=== PATIENT | female | born 1980 | race Caucasian/White ===

== ENCOUNTER → 2024-04-26 | Outpatient (CLI) | payer BC, SELFPAY ==
--- NOTE | 2024-04-26 09:30 | XR_ITS ---
Examination: Diagnostic digital mammography, unilateral, right Computer aided detection 3-D breast Tomosynthesis, unilateral Date and time of exam: April 26, 2024 0956 hours INDICATIONS: Mammogram November 25, 2023 3 cm focal asymmetry inner right breast Technique: Nonmagnified MLO, CC views of the right breast have been obtained, reconstructed from 3-D Tomosynthesis images. R2 computer aided detection program utilized for evaluation of suspicious masses and/or abnormal calcifications. 3-D Tomosynthesis images obtained. Findings: The breast is heterogeneously dense, which may obscure small masses Focal asymmetry remains inner right breast Impression: BI-RADS category 0: Incomplete: Need additional imaging evaluation Repeat right breast sonography follow-up is needed
== END | disposition home or self-care (01) ==
PROVIDERS: Referring Provider Family Medicine; Visit Provider Family Medicine
DX: R92.8 Other abnormal and inconclusive findings on diagnostic imaging of breast (principal)
CPT/HCPCS: 77061; 77065; G0279

== ENCOUNTER → 2024-05-09 | Outpatient (CLI) | payer BC, SELFPAY ==
--- NOTE | 2024-05-09 11:00 | XR_ITS ---
Examination: Breast ultrasound, unilateral, right complete Date and time of exam: May 09, 2024 1136 hours INDICATIONS: Mammogram April 26, 2024 focal asymmetry remains inner right breast, initially noted, 3 cm mammogram November 25, 2023 Technique: Real-time reilly scale ultrasonographic imaging performed right breast including all 4 quadrants as well as nipple retroareolar and axillary region. Findings: 10:00 cyst 6 x 3 x 6 mm 3.7 cm right axillary lymph node No suspicious masses noted Impression: BI-RADS Category 2: Benign findings
== END | disposition home or self-care (01) ==
LOC: CDIM 10:36
PROVIDERS: PCP Family Medicine; Referring Provider Family Medicine; Visit Provider Family Medicine
DX: N60.01 Solitary cyst of right breast (principal)
CPT/HCPCS: 76641

== ENCOUNTER 2024-07-27 06:09 | Emergency (ER) | payer BC, SELFPAY ==
[2024-07-27 06:37] VITALS: BP 119/82; PULSE 70; RESP 18; TEMP 36.9; O2SAT 96
--- NOTE | 2024-07-27 06:48 | XR_ITS ---
Examination: Ultrasound soft tissue neck TECHNIQUE: Grayscale sonographic images soft tissue neck Exam date and time: July 27, 2024 0824 hours INDICATIONS: Right-sided neck pain beginning 3 days ago FINDINGS: No cystic or solid mass depicted IMPRESSION: No cystic or solid mass depicted If right-sided neck pain persists, consider CT scan soft tissue neck post intravenous contrast follow-up
--- NOTE | 2024-07-27 06:48 | XR_ITS ---
Examination: Carotid arterial duplex scan, ultrasound. Date and time of exam: July 27, 2024 0801 hours INDICATIONS: Right-sided neck pain beginning 3 days ago Technique: Multiple sonographic images have been obtained of the carotid arteries and vertebral arteries, B-mode/grayscale imaging and Doppler spectral analysis and color flow Peak systolic and diastolic velocities have been recorded. Systolic diastolic ratios have been calculated. Findings: Right peak systolic velocities: Distal internal carotid artery peak systolic velocity is 0.6 M/sec Proximal internal carotid artery peak systolic velocity is 0.7 M/sec Carotid bifurcation peak systolic velocity is 0.9 M/sec External carotid artery peak systolic velocity is 0.9 M/sec Vertebral artery flow is antegrade. Left peak systolic velocities: Distal internal carotid artery peak systolic velocity is 0.6 M/sec Proximal internal carotid artery peak systolic velocity is 0.6 M/sec Carotid bifurcation peak systolic velocity is 0.8 M/sec External carotid artery peak systolic velocity is 1.1 M/sec Vertebral artery flow is antegrade Doppler waveform analysis demonstrates no spectral broadening Impression: Right internal carotid artery demonstrates 0-10% stenosis. Left internal carotid artery demonstrates 0-10% stenosis.
--- NOTE | 2024-07-27 07:09 | PD.EDNECK ---
ED Neck Injury Pain RME/HPI General Chief Complaint: Neck Pain/Injury Stated Complaint: Right side of neck pain, fatigue x3 days Time Seen by Provider: 07/27/24 06:31 Source: patient Arrival date/time: 07/27/24 06:09 This is a 43-year-old female presents to the emergency department with complaints of right sided neck pain for 3 days. Reports pain 8 out of 10. Has been taking [id number] Tylenol with no relief of symptoms. + Reports tenderness to palpation. No rashes to area denies any recent injury. No posterior neck pain. Has not had any fever chills or rigors. Mode of arrival: ambulatory Limitations: no limitations Related Data Home Medications ?Medication ?Instructions ?Recorded ?Confirmed paroxetine HCl 10 mg tablet (Paxil) 10 mg PO QDAY 03/05/19 04/30/19 Previous Rx's ?Medication ?Instructions ?Recorded acetaminophen 325 mg tablet 650 mg (2 x 325 mg) PO Q6H PRN 07/27/24 (Tylenol) fever or pain #30 tabs cyclobenzaprine 5 mg tablet 5 mg PO Q8H PRN muscle spasm #14 07/27/24 tabs Allergies Allergy/AdvReac Type Severity Reaction Status Date / Time adhesive tape Allergy Intermediate Rash Verified 04/30/19 08:06 morphine Allergy Hives Verified 01/03/24 06:11 Review of Systems Review of Systems Systems Reviewed: All systems reviewed, normal except as documented Narrative Review of Systems: Gen: No fever, no chills, no weight loss EYES: No discharge, no visual changes, no pain HEENT: No ear pain, no congestion, no sore throat, + right lateral neckpain PULM: No shortness of breath, no cough, no congestion CV: No chest pain, no dyspnea on exertion, no palpitations GI: No nausea, no vomiting, no diarrhea, no pain, no constipation : No frequency, no urgency, no dysuria Musc/skel: No joint pain, no back pain Skin: No rash Psyc: No hallucinations, no depression Heme/Lymph: No easy bleeding or bruising tendencies Neuro: No weakness, no headache ED Exam General Limitations: Present no limitations General appearance: Present alert and in no apparent distress Head Head exam: Present atraumatic Eye Eye exam: Present normal appearance, PERRL and EOMI ENT ENT exam: Present normal exam, normal oropharynx and mucous membranes moist Neck Neck exam: Present full ROM and trachea midline; Absent meningismus, lymphadenopathy or thyromegaly Expanded Neck Exam Neck exam focused ED: Present other (+ Right lateral tenderness to palpation near sternocleidomastoid muscle.); Absent midline tenderness, paraspinal tenderness, anterior neck swelling, thyroid enlargement or JVD Chest Chest inspection: Present normal inspection and symmetric chest wall rise Respiratory Respiratory exam: Present normal lung sounds bilaterally Cardiovascular Cardiovascular exam: Present regular rate, normal rhythm and normal heart sounds Abdominal Exam Abdominal exam: Present soft and normal bowel sounds Extremities Exam Extremities exam: Present normal inspection and full ROM Back Exam Back exam: Present normal inspection and full ROM Neurological Exam Neurological exam: Present alert, oriented X3 and CN II-XII intact Psychiatric Psychiatric exam: Present normal affect and normal mood Skin Skin exam: Present warm, dry, intact and normal color Course Quality Measures none Orders Category Date Time Status US carotid duplex Stat Exams 07/27/24 06:48 Completed US soft tissue head and neck Stat Exams 07/27/24 06:48 Completed Vital Signs Vital signs: Vital Signs Temperature 98.5 F 07/27/24 06:37 Pulse Rate 70 07/27/24 06:37 Respiratory Rate 18 07/27/24 06:37 Blood Pressure 119/82 07/27/24 06:37 Pulse Oximetry (%) 96 07/27/24 06:37 Oxygen Delivery Method Room Air 07/27/24 06:37 Neck Pain Patient data External records reviewed:: [facility] previous records Clinical information provided by:: patient Social determinants that could affect healthcare access:: none Patient has the following chronic illnesses:: none How is presenting disease/condition affected by chronic disease/condition?: no chronic disease Evaluation data The following diagnostics were reviewed and interpreted by me:: radiology exam(s) Lab and/or radiology exams considered but not ordered:: no Interpretation Summary: Examination: Ultrasound soft tissue neck TECHNIQUE: Grayscale sonographic images soft tissue neck Exam date and time: July 27, 2024 0824 hours INDICATIONS: Right-sided neck pain beginning 3 days ago FINDINGS: No cystic or solid mass depicted IMPRESSION: No cystic or solid mass depicted If right-sided neck pain persists, consider CT scan soft tissue neck post intravenous contrast follow-up Examination: Carotid arterial duplex scan, ultrasound. Date and time of exam: July 27, 2024 0801 hours INDICATIONS: Right-sided neck pain beginning 3 days ago Technique: Multiple sonographic images have been obtained of the carotid arteries and vertebral arteries, B-mode/grayscale imaging and Doppler spectral analysis and color flow Peak systolic and diastolic velocities have been recorded. Systolic diastolic ratios have been calculated. Findings: Right peak systolic velocities: Distal internal carotid artery peak systolic velocity is 0.6 M/sec Proximal internal carotid artery peak systolic velocity is 0.7 M/sec Carotid bifurcation peak systolic velocity is 0.9 M/sec External carotid artery peak systolic velocity is 0.9 M/sec Vertebral artery flow is antegrade. Left peak systolic velocities: Distal internal carotid artery peak systolic velocity is 0.6 M/sec Proximal internal carotid artery peak systolic velocity is 0.6 M/sec Carotid bifurcation peak systolic velocity is 0.8 M/sec External carotid artery peak systolic velocity is 1.1 M/sec Vertebral artery flow is antegrade Doppler waveform analysis demonstrates no spectral broadening Impression: Right internal carotid artery demonstrates 0-10% stenosis. Left internal carotid artery demonstrates 0-10% stenosis. Medications / Prescriptions Medications or Prescriptions considered but not ordered:: no Medication administrations:: no Consultations Consultation(s) initiated? (list below): No Diagnosis Neck Differential Diagnosis: disc disorder of cervical region, whiplash injury to neck, closed subluxation of cervical spine, cervical radiculopathy, torticollis, cervical spondylosis and strain of neck muscle Most likely diagnosis given after review of the tests above:: Most likely strain of neck muscle. Admission Indicated Admission indicated?: not indicated Admission Request Was there a request for admission?: No Disposition Plan Disposition Plan: Discharge Discharge Attestation Discharge Attestation: The patient and all family members were given an opportunity to ask questions and understood the discharge instructions. Discharge instructions specifically effects, indications for sooner follow up or return to the emergency department, and the expected course of current diagnosis. Patient condition: Stable Discharge Plan Plan Patient Disposition: HOME (Self Care) Patient condition on transfer: Stable Prescriptions/Referrals Prescriptions/Med Rec: New cyclobenzaprine 5 mg tablet 5 mg PO Q8H PRN (Reason: muscle spasm) Qty: 14 0RF acetaminophen [Tylenol] 325 mg tablet 650 mg PO Q6H PRN (Reason: fever or pain) Qty: 30 0RF No Action paroxetine HCl [Paxil] 10 mg tablet 10 mg PO QDAY Referrals: Sri Murphy MD [Primary Care Provider] - In 1 week Problem List Clinical Impression: Neck pain Patient/Caregiver Discharge Instructions Education Materials: ED Neck Pain Additional Instructions: It is very important that you follow-up with your primary doctor. Your ultrasounds were reassuring. I did send medication for inflammation and muscle relaxer that might help with your symptoms. Return to the emergency department there is any worsening symptoms change in condition. Print Language: Egyptian Stand Alone Forms: Nicki Award Info., Patient Portal Info Letter PA/[employer] SUPERVISOR Supervising Physician PA/[employer] SUPERVISOR Supervising Physician: Dr Washington
== END 2024-07-27 10:30 | disposition home or self-care (01) ==
PROVIDERS: Emergency Provider Emergency Medicine; PCP Family Medicine
DX: M54.2 Cervicalgia (principal)
CPT/HCPCS: 76536; 93880; 99284

== ENCOUNTER → 2024-11-23 | Outpatient (CLI) | payer BC, SELFPAY ==
--- NOTE | 2024-11-23 | XR_ITS ---
Examination: Bilateral hips, AP pelvis, 5 views Technique: AP, lateral views both hips, AP pelvis, 5 views Exam date and time: November 23, 2024 0743 hours Comparison March 28, 2012 INDICATIONS: Patient fell today with injury to the right hip, right hip pain FINDINGS: No hip fracture or dislocation Bones of the pelvis intact IMPRESSION: No hip or pelvic fracture
[2024-11-23 08:26] LABS: Collection Type, Urine Clean Catch
[2024-11-23 09:00] LABS: Basophils % (Auto) 1 % (0-2.5); Eosinophils # (Auto) 0.1 Thou/mm3 (0.0-0.5); Eosinophils % (Auto) 1 % (0-10); Hematocrit 44.4 % (36.0-46.0); Hemoglobin 14.5 g/dL (12.0-16.0); Immature Granulocytes % (Auto) 1 % (0-0); Immature Granulocytes Auto 0.05 Thou/mm3 (0.00-0.00); Lymphocytes # (Auto) 1.8 Thou/mm3 (1.0-4.8); Lymphocytes % (Auto) 21 % (10-50); Mean Corpuscular HGB Conc 32.7 g/dl (31.0-37.0); Mean Corpuscular Hemoglobin 29.6 pg (25.0-35.0); Mean Corpuscular Volume 91 fL (80-100); Monocytes # (Auto) 0.8 Thou/mm3 (0.0-0.8); Monocytes % (Auto) 9 % (0-12); Neutrophils # (Auto) 5.8 Thou/mm3 (1.8-7.7); Neutrophils % (Auto) 67 % (37-80); Nucleated Red Blood Cell % 0 /100 WBC (0); Platelet Count 477 Thou/mm3 (140-440); RDW Standard Deviation 45.6 fL (36.4-46.3); White Blood Count 8.6 Thou/mm3 (3.6-11.0)
[2024-11-23 09:02] LABS: Glucose Estimated Average 88 mg/dL (80-131); Hemoglobin A1C 4.7 % Hgb (4.8-6.0)
[2024-11-23 09:10] LABS: Bacteria,Urine Rare; Bilirubin,Urine Negative (Negative); Blood,Urine Negative (Negative); Calcium Oxalate Crystals,Urine 3+; Color,Urine Yellow (Lt Yel-Yel); Glucose, Urine Negative (Negative); Hyaline Casts,Urine < 1 /hpf (0-1); Ketones,Urine Negative (Negative); Leukocyte Esterase,Urine Positive (Negative); Nitrite,Urine Negative (Negative); PH,Urine 5.5 (5.0-7.0); Protein,Urine 1+ (Neg - Trace); RBC,Urine 11 /hpf (0-3); Specific Gravity,Urine 1.029 (1.001-1.035); Squamous Epithelial Cell,Urine 14 /hpf (0-5); Urobilinogen,Urine Negative mg/dL (0.0-1.0); WBC,Urine 11 /hpf (0-5)
[2024-11-23 09:12] LABS: Clarity,Urine Hazy (Clear/Hazy)
[2024-11-23 09:15] LABS: Alanine Aminotransferase 13 U/L (10-49); Albumin, Serum 4.4 gm/dL (3.5-5.0); Albumin/Globulin Ratio 1.9 (1.2-2.2); Alkaline Phosphatase 166 U/L (46-116); Anion Gap 9 (7-16); Aspartate Amino Transferase 18 U/L (0-34); BUN/Creatinine Ratio 16 Ratio (12-20); Bilirubin,Total 0.5 mg/dL (0.3-1.2); Blood Urea Nitrogen 16 mg/dL (9-23); Calcium 9.4 mg/dL (8.3-10.6); Calcium (Corrected) 9.4 mg/dL (8.5-10.1); Carbon Dioxide 24.8 mMol/L (20.0-31.0); Cardiac Risk Estimate 2.2 RATIO (3.7-5.6); Chloride 105 mMol/L (98-107); Cholesterol 153 mg/dL (132-200); Globulin 2.3 gm/dL (2.3-3.5); Glucose 86 mg/dL (74-106); HDL Cholesterol 70 mg/dL (40-60); LDL Cholesterol,Calculated 67 mg/dL (0-130); Osmolality,Calculated 277 (275-295); Potassium 3.9 mMol/L (3.4-5.1); Sodium 139 mMol/L (136-145); Total Protein 6.7 gm/dL (5.7-8.2); Triglycerides 80 mg/dL (30-150); eGFR > 60 See Note
== END | disposition home or self-care (01) ==
PROVIDERS: PCP Family Medicine; Referring Provider Family Medicine; Visit Provider Family Medicine
DX: E66.9 Obesity, unspecified (principal); M25.551 Pain in right hip; M25.552 Pain in left hip
CPT/HCPCS: 36415; 73523; 80053; 80061; 81001; 83036; 85025

== ENCOUNTER 2024-11-24 20:41 | Emergency (ER) | payer BC, SELFPAY ==
[2024-11-24 20:43] VITALS: BMI 33.6
--- NOTE | 2024-11-24 20:57 | XR_ITS ---
Examination: Knee, right , 3 views Technique: Knee AP, lateral, oblique 3 views Date and time of exam: November 24, 2024 2100 hours INDICATIONS: Patient fell yesterday with injury to the knee, knee pain FINDINGS: Moderate osteopenia No acute fracture Small knee effusion IMPRESSION: No acute fracture or dislocation
[2024-11-24 21:14] VITALS: BP 122/81; PULSE 74; RESP 18; TEMP 36.6; O2SAT 99
--- NOTE | 2024-11-24 21:29 | EDNOTE_ITS ---
Lower Extremity Injury RME/HPI General Chief Complaint: Extremity Injury, Lower Stated Complaint: FALL R KNEE PAIN AND SWELLING Time Seen by Provider: 11/24/24 21:15 Arrival date/time: 11/24/24 20:41 44F with no significant PMH presents to ED with R knee pain and swelling after trip and fall. Patient denies hitting head. Limitations: no limitations Related Data Home Medications ?Medication ?Instructions ?Recorded ?Confirmed paroxetine HCl 10 mg tablet (Paxil) 10 mg PO QDAY 02/0604/30/19 Previous Rx's ?Medication ?Instructions ?Recorded acetaminophen 325 mg tablet 650 mg (2 x 325 mg) PO Q6H PRN 07/27/24 (Tylenol) fever or pain #30 tabs cyclobenzaprine 5 mg tablet 5 mg PO Q8H PRN muscle spa sm #14 07/27/24 tabs Allergies Allergy/AdvReac Type Severity Reaction Status Date / Time adhesive tape Allergy Intermediate Rash Verified 11/24/24 20:48 morphine Allergy Hives Verified 11/24/24 20:48 Review of Systems Review of Systems Systems Reviewed: All systems reviewed, normal except as documented Constitutional Constitutional: Reports system reviewed and no additional complaints, except as documented, Denies fever(s) and Denies headache(s) ENT Ears, Nose, Mouth, and Throat: Denies disequilibrium and Denies headache(s) Cardiovascular Cardiovascular: Reports system reviewed and no additional complaints, except as documented, Denies chest pain and Denies dyspnea Respiratory Respiratory: Reports system reviewed and no additional complaints, except as documented, Denies cough and Denies dyspnea Gastrointestinal Gastrointestinal: Reports system reviewed and no additional complaints, except as documented, Denies abdominal pain, Denies nausea and Denies vomiting Musculoskeletal Musculoskeletal: Reports as per HPI and Reports arthralgias Neurologic Neurologic: Reports system reviewed and no additional complaints, except as documented, Denies confusion, Denies disequilibrium and Denies headache(s) Psychiatric Psychiatric: Denies confusion Past Medical History Past Medical History CARDIAC: Negative Congestive Heart Failure RESPIRATORY: Negative Chronic Obstructive Pulmonary Disease (COPD) GENITOURINARY: Negative Renal Disease ENDOCRINE: Negative Diabetes Mellitus Type 1 or Diabetes Mellitus Type 2 PSYCHO/SOCIAL: Positive Depression Surgical History SURGICAL: Positive Gastric Bypass Surgery and Section Social History SMOKING STATUS: Never smoker ED Exam General Limitations: Present no limitations General appearance: Present alert and in no apparent distress Head Head exam: Present atraumatic Eye Eye exam: Present normal appearance, PERRL and EOMI ENT ENT exam: Present normal exam, normal oropharynx and mucous membranes moist Neck Neck exam: Present normal inspection, full ROM and trachea midline Chest Chest inspection: Present normal inspection and symmetric chest wall rise Respiratory Respiratory exam: Present normal lung sounds bilaterally Cardiovascular Cardiovascular exam: Present regular rate, normal rhythm and normal heart sounds Abdominal Exam Abdominal exam: Present soft and normal bowel sounds Extremities Exam Extremities exam: Present full ROM Expanded Lower Extremity Exam Knee exam: Present full ROM (R), tenderness, swelling and ecchymosis Lower leg exam: Present full ROM, tenderness, swelling and ecchymosis Back Exam Back exam: Present normal inspection and full ROM Neurological Exam Neurological exam: Present alert, oriented X3 and CN II-XII intact Psychiatric Psychiatric exam: Present normal affect and normal mood Skin Skin exam: Present warm, dry, intact and normal color Course Quality Measures none Orders Category Date Time Status chapis wrap [Splint / Immobilizer] STAT Care 11/24/24 21:56 Active XR knee RT 3V Stat Exams 11/24/24 20:57 Completed Vital Signs Vital signs: Vital Signs Temperature 97.9 F 11/24/24 21:14 Pulse Rate 74 11/24/24 21:14 Respiratory Rate 18 11/24/24 21:14 Blood Pressure 122/81 11/24/24 21:14 Pulse Oximetry (%) 99 11/24/24 21:14 Oxygen Delivery Method Room Air 11/24/24 21:14 O2 at 99% on RA and WNLs Extremity Injury, Lower MDM Narrative MDM Narrative:: 44F with no significant PMH presents to ED with R knee pain and swelling after trip and fall. Patient denies hitting head. Physical exam reveals R knee and upper tibia area bruising, swelling, and tenderness. ROM and gait intact. Patient is afebrile, calm, and alert. XR no fx. Given CHAPIS and certified alcohol counselor. Patient did not want crutches. Patient data External records reviewed:: [facility] previous records Clinical information provided by:: patient Social determinants that could affect healthcare access:: mental health Patient has the following chronic illnesses:: psych How is presenting disease/condition affected by chronic disease/condition?: uneffected by Evaluation data The following diagnostics were reviewed and interpreted by me:: radiology exam(s) Lab and/or radiology exams considered but not ordered:: ordered Interpretation Summary: above Medications / Prescriptions Medications or Prescriptions considered but not ordered:: not ordered Medication administrations:: n/a Consultations Consultation(s) initiated? (list below): No Diagnosis Extremity Injury, Lower Differential Diagnosis: ankle sprain and strain, acute internal derangement of knee, fracture of femur, fracture of hip, puncture wound of foot, fracture of toe, ankle fracture and other (leg contusion) Most likely diagnosis given after review of the tests above:: knee contusion Admission Indicated Admission indicated?: not indicated Admission Request Was there a request for admission?: No Disposition Plan Disposition Plan: Discharge Discharge Attestation Discharge Attestation: The patient and all family members were given an opportunity to ask questions and understood the discharge instructions. Discharge instructions specifically effects, indications for sooner follow up or return to the emergency department, and the expected course of current diagnosis. Patient condition: Stable Discharge Plan Plan Patient Disposition: HOME (Self Care) Discharge Disposition comment: Stable Prescriptions/Referrals Prescriptions/Med Rec: No Action paroxetine HCl [Paxil] 10 mg tablet 10 mg PO QDAY cyclobenzaprine 5 mg tablet 5 mg PO Q8H PRN (Reason: muscle spasm) Qty: 14 0RF acetaminophen [Tylenol] 325 mg tablet 650 mg PO Q6H PRN (Reason: fever or pain) Qty: 30 0RF Referrals: Main Nguyen MD [Primary Care Provider] - In 1 week Problem List Clinical Impression: Contusion of knee Patient/Caregiver Discharge Instructions Education Materials: ED Contusion, Lower Extremity Additional Instructions: Please follow-up with PCP within 24-48 hours and return immediately if symptoms worsen. If problem persists, recommend outpatient PT and/or MRI follow-up. In the meantime, rest, use ice/heat, and/or compression. Print Language: Wolof Stand Alone Forms: Patient Portal Info Letter CAESAR/CHAR Supervising Physician ZEYAD Supervising Physician: Dr. grossman
== END 2024-11-24 22:10 | disposition home or self-care (01) ==
PROVIDERS: Emergency Provider Emergency Medicine; PCP Family Medicine
DX: S80.01XA Contusion of right knee, initial encounter (principal); W01.0XXA Fall on same level from slipping, tripping and stumbling without subsequent striking against object, initial encounter
CPT/HCPCS: 73562; 99283

== ENCOUNTER → 2024-11-29 | Outpatient (CLI) | payer BC, SELFPAY ==
--- NOTE | 2024-11-29 11:15 | XR_ITS ---
Examination: Screening digital mammography, bilateral Computer aided detection 3-D breast Tomosynthesis, bilateral Date and time of exam: November 29, 2024 1128 hours Compared to mammograms dating to October 05, 2013 Indication: Screening Technique: Nonmagnified MLO, CC views of the breasts to been obtained, reconstructed from 3-D Tomosynthesis images. R2 computer aided detection program utilized for evaluation of suspicious masses and/or abnormal calcifications. 3-D Tomosynthesis images obtained. Findings: The breasts are heterogeneously dense, which may obscure small masses Stable focal asymmetry inner left breast which appears to represent glandular tissue Impression: BI-RADS Category 0: Incomplete: Need additional imaging evaluation Recommend repeating the left breast sonogram to document plantar tissue in the inner left breast
== END | disposition home or self-care (01) ==
PROVIDERS: PCP Family Medicine; Referring Provider Family Medicine; Visit Provider Family Medicine
DX: Z12.31 Encounter for screening mammogram for malignant neoplasm of breast (principal); R92.333 Mammographic heterogeneous density, bilateral breasts; N64.89 Other specified disorders of breast
CPT/HCPCS: 77063; 77067

== ENCOUNTER → 2024-12-18 | Outpatient (CLI) | payer BC, SELFPAY ==
--- NOTE | 2024-12-18 16:00 | XR_ITS ---
Examination: Breast ultrasound, unilateral, left complete Date and time of exam: December 18, 2024 1548 hours INDICATIONS: Mammogram November 29, 2024 focal asymmetry inner left breast Technique: Real-time reilly scale ultrasonographic imaging performed left breast including all 4 quadrants as well as nipple retroareolar and axillary region. Findings: No cystic or solid mass IMPRESSION: BI-RADS Category 1: Negative study
== END | disposition home or self-care (01) ==
LOC: CDIM 15:34
PROVIDERS: PCP Family Medicine; Referring Provider Family Medicine; Visit Provider Family Medicine
DX: R92.2 Inconclusive mammogram (principal)
CPT/HCPCS: 76641

== ENCOUNTER → 2025-01-01 | Outpatient (CLI) | payer BC, SELFPAY ==
--- NOTE | 2025-01-01 14:38 | XR_ITS ---
EXAMINATION: Ankle, right 2 views . Technique: Ankle AP, lateral 2 views Date and time of exam: January 01, 2025 1451 hours INDICATIONS: Right ankle pain beginning one week ago. FINDINGS: No fracture or dislocation Mild osteoarthritis tibiotalar joint Small plantar posterior bony calcaneal spurs Mild osteoarthritis intertarsal joints IMPRESSION: Mild osteoarthritis
[2025-01-01 15:57] LABS: Uric Acid 3.8 mg/dL (3.1-7.8)
== END | disposition home or self-care (01) ==
LOC: CDIM 14:30 → COPL 14:52
PROVIDERS: PCP Family Medicine; Referring Provider Family Medicine; Visit Provider Family Medicine
DX: M19.071 Primary osteoarthritis, right ankle and foot (principal); M25.571 Pain in right ankle and joints of right foot
CPT/HCPCS: 36415; 73600; 84550

== ENCOUNTER → 2025-02-01 | Outpatient (CLI) | payer BC, SELFPAY ==
--- NOTE | 2025-02-01 | XR_ITS ---
Examination: Hand, right 3 views Technique: Hand AP, oblique, lateral 3 views Date and time of exam: January 24, 2025 0759 hours INDICATIONS: Injury to the hand today, hand pain. FINDINGS: No acute fracture. No dislocation No foreign body IMPRESSION: No acute fracture
--- NOTE | 2025-02-01 | XR_ITS ---
Examination: Wrist, right 3 views Technique: Wrist AP, oblique, lateral 3 views Date and time of exam: February 01, 2025 0759 hours INDICATIONS: Injured the wrist today, wrist pain. FINDINGS: No acute fracture No dislocation IMPRESSION: No acute fracture
== END | disposition home or self-care (01) ==
LOC: CDIM 07:34
PROVIDERS: PCP Family Medicine; Referring Provider Family Medicine; Visit Provider Family Medicine
DX: S69.91XA Unspecified injury of right wrist, hand and finger(s), initial encounter (principal); X58.XXXA Exposure to other specified factors, initial encounter
CPT/HCPCS: 73110; 73130

== ENCOUNTER → 2025-04-06 | Outpatient (CLI) | payer BC, SELFPAY ==
--- NOTE | 2025-04-06 08:35 | EKG_ITS ---
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
[2025-04-06 08:39] LABS: Basophils # (Auto) 0.0 Thou/mm3 (0.0-0.2); Basophils % (Auto) 0 % (0-2.5); Eosinophils # (Auto) 0.1 Thou/mm3 (0.0-0.5); Eosinophils % (Auto) 1 % (0-10); Hematocrit 42.4 % (36.0-46.0); Hemoglobin 13.7 g/dL (12.0-16.0); Immature Granulocytes Auto 0.05 Thou/mm3 (0.00-0.00); Lymphocytes # (Auto) 2.1 Thou/mm3 (1.0-4.8); Lymphocytes % (Auto) 23 % (10-50); Mean Corpuscular HGB Conc 32.3 g/dl (31.0-37.0); Mean Corpuscular Hemoglobin 29.8 pg (25.0-35.0); Mean Corpuscular Volume 92 fL (80-100); Monocytes # (Auto) 0.7 Thou/mm3 (0.0-0.8); Monocytes % (Auto) 8 % (0-12); Neutrophils # (Auto) 6.0 Thou/mm3 (1.8-7.7); Neutrophils % (Auto) 67 % (37-80); Nucleated Red Blood Cell # 0.00 Thou/mm3 (0.00-0.00); Nucleated Red Blood Cell % 0 /100 WBC (0); Platelet Count 359 Thou/mm3 (140-440); RDW Standard Deviation 46.3 fL (36.4-46.3); Red Blood Count 4.60 Miln/mm3 (4.00-5.20); White Blood Count 9.0 Thou/mm3 (3.6-11.0)
[2025-04-06 08:47] LABS: Alanine Aminotransferase 11 U/L (10-49); Albumin, Serum 4.2 gm/dL (3.5-5.0); Albumin/Globulin Ratio 2.3 (1.2-2.2); Alkaline Phosphatase 154 U/L (46-116); Anion Gap 9 (7-16); Aspartate Amino Transferase 13 U/L (0-34); BUN/Creatinine Ratio 20 Ratio (12-20); Bilirubin,Total 0.3 mg/dL (0.3-1.2); Blood Urea Nitrogen 16 mg/dL (9-23); Calcium 9.1 mg/dL (8.3-10.6); Calcium (Corrected) 9.1 mg/dL (8.5-10.1); Carbon Dioxide 26.8 mMol/L (20.0-31.0); Chloride 105 mMol/L (98-107); Creatinine (Component) 0.8 mg/dL (0.6-1.3); Globulin 1.8 gm/dL (2.3-3.5); Glucose 85 mg/dL (74-106); Osmolality,Calculated 281 (275-295); Potassium 4.3 mMol/L (3.4-5.1); Sodium 141 mMol/L (136-145); Total Protein 6.0 gm/dL (5.7-8.2); eGFR > 60 See Note
== END | disposition home or self-care (01) ==
PROVIDERS: PCP Family Medicine; Referring Provider Podiatrist Foot & Ankle Surgery; Visit Provider Podiatrist Foot & Ankle Surgery
DX: Z01.818 Encounter for other preprocedural examination (principal); Z01.812 Encounter for preprocedural laboratory examination; Z01.810 Encounter for preprocedural cardiovascular examination
CPT/HCPCS: 36415; 80053; 85025; 93005